=== PATIENT | female | born 1975 | race Caucasian/White ===

== ENCOUNTER → 2017-05-01 | Outpatient (CLI) | payer OTHER ==
[~2017-05-01] MED LIST: LEVO125T6 PO; OMEP-10 PO; OXYC-12 PO; OXYC1TAB87 PO
--- NOTE | 2017-05-01 15:12 | Diagnostic Imaging Report ---
INDICATION: Routine screening. COMPARISON: 03/31/2016 and 10/21/2010. TECHNIQUE: Screening digital mammography was performed bilaterally with a Computer Aided Detection (CAD) system. FINDINGS: There is mild density bilaterally. No mass or malignant appearing microcalcifications are seen. The axillae are unremarkable. IMPRESSION: No mammographic features suspicious for malignancy are identified. ACR BI-RADS Category 1: Negative. Result letter will be mailed to the patient. Note: At least 10% of breast cancer is not imaged by mammography. Dictated by: Dictated on workstation # [id number]
== END ==
LOC: RAD 14:11
PROVIDERS: ATTEND Nurse Practitioner
DX: Z12.31 Encounter for screening mammogram for malignant neoplasm of breast (principal)
CPT/HCPCS: 77067

== ENCOUNTER → 2018-10-29 | Outpatient (CLI) | payer OTHER ==
--- NOTE | 2018-10-29 17:04 | Diagnostic Imaging Report ---
INDICATION: Routine screening. COMPARISON: Prior mammograms from 05/01/2017 and 03/31/2016. EXAMINATION: 2D and 3D bilateral screening mammography was performed with CAD. The current study was also evaluated with a Computer Aided Detection (CAD) system. FINDINGS: Scattered fibroglandular densities are identified, bilaterally. The parenchymal pattern is stable. No mass or malignant appearing microcalcifications are seen. The axillae are unremarkable. IMPRESSION: No mammographic features suspicious for malignancy are identified. ACR BI-RADS Category 1: Negative. Result letter will be mailed to the patient. Note: At least 10% of breast cancer is not imaged by mammography. Dictated on workstation # [id number]
== END ==
LOC: RAD 08:44
PROVIDERS: ATTEND Obstetrics & Gynecology
DX: Z12.31 Encounter for screening mammogram for malignant neoplasm of breast (principal)
CPT/HCPCS: 77067

== ENCOUNTER → 2018-11-24 | Outpatient (CLI) | payer OTHER ==
[~2018-11-24] MED LIST changes: +CATHETER FLUSH 10 ML SYR IV PRN
[2018-11-24 13:11] VITALS: BP 125/93
[2018-11-24 13:16] VITALS: BP 219/96
[2018-11-24 13:20] VITALS: BP 206/89
[2018-11-24 13:24] VITALS: BP 133/87
--- NOTE | 2018-11-24 20:15 | STRESS TEST ---
DATE OF SERVICE: 11/24/2018 EXERCISE MYOVIEW STRESS TEST REFERRING PHYSICIAN: [facility]. Baseline heart rate is 85. Baseline blood pressure 143/92. Baseline EKG is sinus rhythm with no ischemic changes. In summary, the patient was injected with 9.87 mCi of technetium-99 Myoview and the resting images were obtained. Then, the patient started exercising with a baseline heart rate, blood pressure and EKG mentioned above. She was able to exercise for 5 minutes 15 seconds on standard Rehan protocol. With peak exercise level, EKG was showing minimal nondiagnostic changes. Blood pressure was 219/96. During recovery, heart rate and blood pressure returned to baseline. The resting and stress images were reviewed and compared in the short axis, horizontal long axis, and vertical long axis views. Review of the images showed breast attenuation with typical female pattern. No significant ischemia or infarction was seen. SSS is 0. SDS 0. TID value 1.13. On the gated images, the left ventricle appeared to be normal size with normal contractility. Calculated ejection fraction 63%. CONCLUSION: 1. Fair exercise tolerance, a total of 5 minutes 15 seconds on standard Rehan protocol, total of 7.1 METS achieving 87% of maximum expected heart rate. 2. Severe hypertensive response to exercise with peak blood pressure 219/96, returned to baseline during recovery. 3. Minimal nondiagnostic EKG changes with exercise, returned to baseline during recovery. 4. Typical female pattern with no significant ischemia or infarction on SPECT images. 5. Normal left ventricular size with normal contractility. Calculated ejection fraction 63%. Job ID: [id number] DocumentID: [id number] Dictated Date: 11/24/2018 16:49:00 Clocksmith Date: 11/24/2018 20:14:53 Dictated By: PAN MANDUJANO MD
== END ==
LOC: CARD 10:17
PROVIDERS: ATTEND Internal Medicine Cardiovascular Disease
DX: E78.5 Hyperlipidemia, unspecified (principal); I10 Essential (primary) hypertension; Z82.49 Family history of ischemic heart disease and other diseases of the circulatory system
CPT/HCPCS: 78452; 93017

== ENCOUNTER → 2018-11-26 | Outpatient (CLI) | payer OTHER ==
[~2018-11-26] MED LIST changes: -CATHETER FLUSH 10 ML SYR IV PRN
== END ==
LOC: CARD 09:44
PROVIDERS: ATTEND Internal Medicine Cardiovascular Disease
DX: I51.7 Cardiomegaly (principal); E78.5 Hyperlipidemia, unspecified; Z82.49 Family history of ischemic heart disease and other diseases of the circulatory system
CPT/HCPCS: 93306

== ENCOUNTER 2019-03-27 10:59 | Emergency (ER) | payer OTHER ==
[~2019-03-27] VITALS: Ht 178 cm; Wt 116.0 kg
--- NOTE | 2019-03-27 11:13 | ED Upper Extremity ---
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 Onset: this morning Severity: moderate Pain/Injury Location: left shoulder Method of Injury: other Modifying Factors: Worse With Movement (lifting) Allergies and Home Medications Allergies Coded Allergies: No Known Drug Allergies (Verified Allergy, Unknown, 04/29/07) Home Medications Levothyroxine Sodium 125 Mcg Tablet, 125 MCG PO DAILY, (Reported) Omeprazole 20 Mg Capsule.dr, 20 MG PO DAILY, (Reported) Oxycodone Hcl/Acetaminophen 1 Each Tablet, 1-2 TAB PO Q4-6H PRN PRN for PAIN MAY TAKE 1 OR 2 TABS BY MOUTH EVERY 4-6 HRS NEEDED FOR PAIN. DO NOT EXCEED 4000 MG TYLENOL(ACETAMINOPHEN)IN A 24 HR PERIOD. LAST DOSE, 1 TAB, GIVEN AT 11:55 AM 10/26/13 Prescribed by: ADRIANNE COLLADO on 10/26/13 1343 Oxycodone Hcl/Acetaminophen 1 Tab Tablet, 1 TAB PO Q2HR PRN for PAIN Prescribed by: MANUEL PETER on 01/18/14 1114 Patient Home Medication List Home Medication List Reviewed: Yes Review of Systems Constitutional: see HPI EENTM: see HPI Respiratory: no symptoms reported Cardiovascular: no symptoms reported Genitourinary: no symptoms reported Musculoskeletal: see HPI Skin: no symptoms reported Psychiatric/Neurological: No Symptoms Reported Past Frrulvo-Qygqgd-Bmiwcz Hx Patient Social History Alcohol Use: Denies Use Recreational Drug Use: No Recent Foreign Travel: No Contact w/Someone Who Travel: No Recent Infectious Disease Expo: No Past Medical History Surgeries: Yes (left knee scope) Respiratory: No Cardiac: No Neurological: No Gastrointestinal: Yes Musculoskeletal: No Endocrine: Yes Blood Disorders: No Physical Exam Vital Signs Vital Signs - First Documented 03/27/19 11:07 Temp 36.5 Pulse 100 Resp 18 B/P (MAP) 144/93 (110) Pulse Ox 98 Capillary Refill : Less Than 3 Seconds Height, Weight, BMI Height: 5'10.00" Weight: 240lbs. oz. 108.882817lp; 36.00 BMI Method: General Appearance: WD/WN, no apparent distress HEENT: PERRL/EOMI, normal ENT inspection Respiratory: no respiratory distress, no accessory muscle use Shoulder: normal inspection; No asymmetry, No deformity, No ecchymosis; limited ROM, pain, soft tissue tenderness Elbow/Forearm: normal inspection, non-tender Wrist: Yes normal inspection, Yes non-tender Hand: normal inspection, non-tender Neurologic/Psychiatric: alert, normal mood/affect, oriented x 3 Skin: normal color, warm/dry Progress/Results/Core Measures Results/Orders My Orders Orders - DAVID MIJARES APRN Shoulder, Left, 3 Views (03/27/19 11:09) Vital Signs/I&O 03/27/19 11:07 Temp 36.5 Pulse 100 Resp 18 B/P (MAP) 144/93 (110) Pulse Ox 98 Blood Pressure Mean: 110 POS Departure Impression Primary Impression: Internal derangement of left shoulder Disposition: 01 HOME, SELF-CARE Condition: Stable Departure-Patient Inst. Decision time for Depature: 11:12 Referrals: EZRA ESPINOSA MD (PCP) Primary Care Physician AUDREY BUENROSTRO (Family) Primary Care Physician Patient Instructions: Rotator Cuff Injury, Shoulder Pain (DC) Add. Discharge Instructions: It is most likely that her symptoms are direct marketing representative of rotator cuff injury. Wear the sling at all times except when sleeping in showering for the next 1-2 weeks, until pain-free or released by occupational health. Tylenol and ibuprofen for pain in the meantime. All discharge instructions reviewed with patient and/or family. Voiced understanding. DAVID MIJARES APRN Mar 27, 2019 11:13 POS
--- NOTE | 2019-03-27 11:42 | Diagnostic Imaging Report ---
EXAMINATION: Left shoulder series. INDICATION: Shoulder pain. FINDINGS: Alignment of the shoulder unremarkable. There is no glenohumeral joint dislocation. AC joint alignment appropriate. Morphology of the humeral head is normal. No findings of an acute fracture. The visualized portion of left lung clear without pneumothorax. IMPRESSION: Negative radiographs of the left shoulder. Dictated by: Dictated on workstation # [id number]
[2019-03-27 12:04] VITALS: BP 144/93
== END 2019-03-27 12:05 | disposition home or self-care (01) ==
LOC: EDUNIT# 10:59 → ER 11:00
DX: M24.112 Other articular cartilage disorders, left shoulder (principal); X50.0XXA Overexertion from strenuous movement or load, initial encounter; Y92.129 Unspecified place in nursing home as the place of occurrence of the external cause
CPT/HCPCS: 73030

== ENCOUNTER → 2019-04-20 | Outpatient (CLI) | payer OTHER ==
[~2019-04-20] VITALS: Ht 177.8 cm; Wt 113.6 kg
[~2019-04-20] MED LIST changes: +GADOBUTROL 7.5 MMOL/7.5 ML (GADAVIST) VIAL IV ONE; +IOHEXOL 300 MG/ML 50 ML (OMNIPAQUE 300) VIAL IV ONE
--- NOTE | 2019-04-20 14:31 | Diagnostic Imaging Report ---
INDICATION: Left shoulder pain. Study is performed prior to MRI. DETAILS OF PROCEDURE: Patient was brought to the procedure room and placed on the table in supine position. Skin of the left shoulder was prepped and draped in usual sterile fashion. Small amount of 1% lidocaine was utilized for local anesthesia. 21-gauge needle was advanced into the left shoulder at the rotator interval. 15 mL solution of iodinated contrast, normal saline and gadolinium was injected under fluoroscopic observation. Needle was removed and hemostasis was obtained. 16 seconds of fluoroscopic time was utilized. Patient tolerated the procedure well and was sent to MRI in satisfactory condition. IMPRESSION: Successful left shoulder injection of gadolinium contrast solution, using fluoroscopy. Dictated by: Dictated on workstation # [id number]
--- NOTE | 2019-04-20 15:59 | Diagnostic Imaging Report ---
EXAMINATION: Magnetic resonance imaging of the left shoulder with intra-articular contrast. DATE: April 20, 2019. COMPARISON: Left shoulder arthrogram April 20, 2019. Left shoulder radiographs March 27, 2019. HISTORY: 43-year-old female, left shoulder pain. TECHNIQUE: Magnetic Resonance Imaging sequences were performed of the shoulder following the intra-articular administration of contrast. FINDINGS: ROTATOR CUFF, LIGAMENTS, TENDONS, AND MUSCLES: The supraspinatus, infraspinatus, teres minor, and subscapularis tendons and muscles are intact. There is normal rotator cuff muscle bulk and signal. LONG HEAD OF BICEPS: The biceps labral attachment and long head of the biceps tendon is intact. The long head of the biceps tendon is normally positioned within the bicipital groove. GLENOHUMERAL JOINT: The humeral head is well positioned relative to the glenoid. The labrum is intact. There is no identified paralabral cyst. The articular cartilage is grossly intact. There is no intra-articular body or prominent synovitis. ACROMIOCLAVICULAR JOINT: The acromioclavicular joint is normally aligned. The coracoclavicular and coracoacromial ligaments are intact. There are no degenerative changes of the acromioclavicular joint. BONE: The bones all have normal configuration. The bone marrow signal is within normal limits. Specifically, negative for fracture, osteomyelitis, osteonecrosis, or marrow replacing process. BURSAE AND SOFT TISSUES: The bursae and soft tissue surrounding the shoulder are unremarkable. IMPRESSION: Unremarkable MRI arthrogram of the left shoulder. Dictated by: Dictated on workstation # [id number]
== END ==
LOC: RAD 12:49
PROVIDERS: ATTEND Nurse Practitioner
DX: Z04.2 Encounter for examination and observation following work accident (principal); S43.401D Unspecified sprain of right shoulder joint, subsequent encounter; S43.52XD Sprain of left acromioclavicular joint, subsequent encounter; E03.8 Other specified hypothyroidism; S43.422A Sprain of left rotator cuff capsule, initial encounter; K21.9 Gastro-esophageal reflux disease without esophagitis
CPT/HCPCS: 23350; 73040; 73222

== ENCOUNTER → 2019-11-03 | Outpatient (CLI) | payer OTHER ==
[~2019-11-03] MED LIST changes: -GADOBUTROL 7.5 MMOL/7.5 ML (GADAVIST) VIAL IV ONE; -IOHEXOL 300 MG/ML 50 ML (OMNIPAQUE 300) VIAL IV ONE
--- NOTE | 2019-11-03 10:23 | Diagnostic Imaging Report ---
INDICATION: Routine screening. COMPARISON: 10/29/2018 and 05/01/2017. TECHNIQUE: 2D and 3D bilateral screening mammography was performed with CAD. FINDINGS: Scattered fibroglandular densities are identified bilaterally. The parenchymal pattern is stable. No dominant mass or malignant appearing microcalcifications are seen. The axillae are unremarkable. IMPRESSION: No mammographic features suspicious for malignancy are identified. ACR BI-RADS Category 1: Negative. Result letter will be mailed to the patient. Note: At least 10% of breast cancer is not imaged by mammography. Dictated by: Dictated on workstation # [id number]
== END ==
LOC: RAD 07:38
PROVIDERS: ATTEND Obstetrics & Gynecology
DX: Z12.31 Encounter for screening mammogram for malignant neoplasm of breast (principal)
CPT/HCPCS: 77063; 77067

== ENCOUNTER → 2019-11-25 | Outpatient (CLI) | payer OTHER ==
--- NOTE | 2019-11-25 11:50 | Diagnostic Imaging Report ---
PROCEDURE: US Non-ob pelvis comp/trans. TECHNIQUE: Multiple realtime grayscale images were obtained of the pelvis in various projections endovaginally. Transabdominal imaging was also performed. INDICATION: Abnormal uterine bleeding and IUD placement three weeks ago. FINDINGS: The uterus is retroverted measuring 6.6 x 4.1 x 5.6 cm. Endometrium is 5 mm in thickness. There is an IUD well centered in the endometrial canal. Right ovary measures 3.2 x 1.4 x 1.2 cm and the left ovary measures 3.8 x 1.9 x 1.9 cm. Left ovary does contain approximately 15 mm complex cyst. Blood flow is identified to the left ovary. There was difficulty obtaining Doppler flow in the right ovary, however the right ovary has a normal appearance and patient is without pain. No free fluid is detected. IMPRESSION: 1. Complex 15 mm left ovarian cyst. 2. IUD is in appropriate location within the endometrial canal. Dictated by: Dictated on workstation # [id number]
== END ==
LOC: RAD 09:32
PROVIDERS: ATTEND Obstetrics & Gynecology
DX: N93.9 Abnormal uterine and vaginal bleeding, unspecified (principal); Z68.37 Body mass index [BMI] 37.0-37.9, adult; N83.202 Unspecified ovarian cyst, left side; Z97.5 Presence of (intrauterine) contraceptive device
CPT/HCPCS: 76830; 76856

== ENCOUNTER → 2020-11-06 | Outpatient (CLI) | payer OTHER ==
--- NOTE | 2020-11-06 13:18 | Diagnostic Imaging Report ---
Indication: Routine screening. Comparison is made with prior mammogram from 11/03/2019 and 10/29/2018. 2-D and 3-D bilateral screening mammography was performed with CAD. Scattered fibroglandular densities are identified bilaterally. The parenchymal pattern is stable. No mass or malignant-appearing microcalcifications are seen. Axillae are unremarkable. IMPRESSION: BI-RADS Category 1 No mammographic features suspicious for malignancy are identified. ACR BI-RADS Category 1: Negative. Result letter will be mailed to the patient. Note: At least 10% of breast cancer is not imaged by mammography. Dictated by: Dictated on workstation # [id number]
== END ==
LOC: RAD 11:00
PROVIDERS: ATTEND Obstetrics & Gynecology
DX: Z12.31 Encounter for screening mammogram for malignant neoplasm of breast (principal)
CPT/HCPCS: 77063; 77067

== ENCOUNTER → 2021-11-20 | Outpatient (CLI) | payer OTHER ==
[2021-11-20 11:17] VITALS: BP 134/92
--- NOTE | 2021-11-20 14:27 | Cardiology Stress Test Report ---
Stress Test Report Date of Procedure/Referring: Date of Procedure: Nov 20, 2021 [facility] Admitting Physician Admitting Physician: Attending Physician: Nenita Malone Indications: CP Baseline Heart Rate: 81 Baseline Blood Pressure: Blood Pressure Systolic: 134 Blood Pressure Diastolic: 92 Baseline EKG: Baseline EKG: NSR Summary/Conclusion: Summary: In summary, the patient started exercising with a baseline heart rate, blood pressure and EKG mentioned above Patient was able to exercise for a total of 4 minutes on Rehan protocol, METs 5.8 Maximum heart rate 155 Maximum blood pressure 216/123 Stress EKG, Minimal nondiagnostic changes Recovery EKG , Return to baseline Conclusion: 1. Good exercise tolerance for a total of 4 minutes on Rehan protocol, 5.8 METs, achieving 89 percent of maximum expected heart rate 2. Minimal nondiagnostic EKG changes with exercise returned to baseline during recovery 3. No arrhythmia was noted 4. Hypertensive response to exercise with peak blood pressure 216/123 return to baseline during recovery Copy Copies To 1: [facility] [place] MANDUJANO MD Nov 20, 2021 14:27
== END ==
LOC: CARD 10:00
PROVIDERS: ATTEND Physician Assistant
DX: R07.9 Chest pain, unspecified (principal); R00.2 Palpitations
CPT/HCPCS: 93017

== ENCOUNTER → 2022-01-07 | Outpatient (CLI) | payer OTHER ==
--- NOTE | 2022-01-07 14:51 | Diagnostic Imaging Report ---
INDICATION: Routine screening. COMPARISON: 11/06/2020 and 11/03/2019. TECHNIQUE: 2D and 3D bilateral screening mammography was performed with CAD. FINDINGS: Scattered fibroglandular densities are identified bilaterally. The parenchymal pattern is stable. No mass or malignant-appearing microcalcifications are seen. The axillae are unremarkable. IMPRESSION: No mammographic features suspicious for malignancy are identified. ACR BI-RADS Category 1: Negative. Result letter will be mailed to the patient. Note: At least 10% of breast cancer is not imaged by mammography. Dictated by: Dictated on workstation # [id number]
== END ==
LOC: RAD 08:15
PROVIDERS: ATTEND Obstetrics & Gynecology
DX: Z12.31 Encounter for screening mammogram for malignant neoplasm of breast (principal)
CPT/HCPCS: 77063; 77067

== ENCOUNTER → 2022-09-09 | Outpatient (CLI) | payer OTHER ==
--- NOTE | 2022-09-09 17:11 | Diagnostic Imaging Report ---
PROCEDURE: US Thyroid. TECHNIQUE: Multiple real-time grayscale images were obtained of the thyroid in various projections. INDICATION: Hyperparathyroidism COMPARISON: None available. FINDINGS: Right thyroid lobe: The right thyroid lobe measures 5.0 x 1.3 x 1.9 cm. No nodule within the right thyroid lobe. Posterior to the lower pole of the right thyroid lobe, there is a solid hypoechoic 1.6 x 0.9 x 0.9 cm soft tissue nodule. Isthmus: The thyroid isthmus measures 0.2 cm. Left thyroid lobe: The left thyroid lobe measures 4.1 x 1.1 x 1.3 cm. No left thyroid nodule. No parathyroid nodule on the left. IMPRESSION: 1. Right-sided parathyroid nodule could represent parathyroid adenoma. If it will alter patient management, then consideration could be given to a nuclear medicine parathyroid scan. 2. No concerning thyroid nodule. Dictated by: Dictated on workstation # [id number]
== END ==
LOC: RAD 08:45
PROVIDERS: ATTEND Pediatrics
DX: E21.0 Primary hyperparathyroidism (principal)
CPT/HCPCS: 76536

== ENCOUNTER → 2022-09-18 | Outpatient (CLI) | payer OTHER ==
--- NOTE | 2022-09-18 16:56 | Diagnostic Imaging Report ---
INDICATION: Hyperparathyroidism and hypercalcemia. Patient was administered 19.6 mCi technetium 99M sestamibi and imaging over the neck and upper chest was performed at 20 minutes and 2 hours. In addition, SPECT-CT imaging was performed at 2 hours. Correlation is made with the thyroid ultrasound from 09/09/2022. 20 minute images demonstrate physiologic activity within the salivary glands as well as both lobes of thyroid gland. Delayed images demonstrate washout of activity from the thyroid. There is retention of activity in the right thyroid bed, corresponding to the nodule noted on recent thyroid ultrasound. SPECT-CT imaging does show activity to be located posterior to the right lobe of the thyroid and features are suggestive of a parathyroid adenoma. No other suspicious areas of uptake are identified. IMPRESSION: Findings suggestive of a parathyroid adenoma posterior to the right lobe of the thyroid. Dictated by: Dictated on workstation # [id number]
== END ==
LOC: CARD 09-09 08:47
PROVIDERS: ATTEND Pediatrics
DX: E21.0 Primary hyperparathyroidism (principal)
CPT/HCPCS: 78072; A9500

== ENCOUNTER → 2023-01-15 | Outpatient (CLI) | payer OTHER ==
--- NOTE | 2023-01-15 12:46 | Diagnostic Imaging Report ---
INDICATION: Routine screening. Comparison is made with prior mammogram from 01/07/2022 and 11/06/2020. 2-D and 3-D bilateral screening mammography was performed with CAD. Scattered fibroglandular densities are identified bilaterally. The parenchymal pattern is stable. No mass or malignant-appearing microcalcifications are seen. Axillae are unremarkable. IMPRESSION: No mammographic features suspicious for malignancy are identified. ACR BI-RADS Category 1: Negative. Result letter will be mailed to the patient. Note: At least 10% of breast cancer is not imaged by mammography. BI-RADS Category 1 Dictated by: Dictated on workstation # [id number]
== END ==
LOC: RAD 09:42
PROVIDERS: ATTEND Obstetrics & Gynecology
DX: Z12.31 Encounter for screening mammogram for malignant neoplasm of breast (principal)
CPT/HCPCS: 77063; 77067